=== PATIENT | female | born 1945 | race Caucasian/White ===

== ENCOUNTER 2020-05-02 14:10 | Emergency (ER) | payer MEDICARE, OTHER ==
[~2020-05-02 14:10] MED LIST: BENTYL 10MG CAP10 MG PO; CEFUROXIME500 MG PO; FLAGYL500 MG PO; LEVOFLOXACIN750 MG PO; PYRIDIUM200 MG PO; ZOFRAN 4 MG TAB4 MG PO
[2020-05-02 18:04] LABS: HEMOGLOBIN 11.6 gm/dl (12.3-15.3); RED BLOOD COUNT 3.73 M/UL (4.00-5.10); WHITE BLOOD COUNT 7.2 K/UL (4.5-11.0)
[2020-05-02] MEDS ORDERED: INVANZ 1 GM VIAL1 GM IV (19:02)
== END 2020-05-02 19:27 | disposition home or self-care (01) ==
LOC: ER1 14:10
PROVIDERS: Physician Assistant Medical
DX: N39.0 Urinary tract infection, site not specified (principal); B96.89 Other specified bacterial agents as the cause of diseases classified elsewhere; Z16.39 Resistance to other specified antimicrobial drug; Z88.0 Allergy status to penicillin; Z88.2 Allergy status to sulfonamides; Z88.8 Allergy status to other drugs, medicaments and biological substances
CPT/HCPCS: 80053; 81001; 85025; 87077; 87086; 87186; 96374; 99283; J1335

== ENCOUNTER → 2020-05-03 | Outpatient (CLI) | payer MEDICARE, OTHER ==
[~2020-05-03] MED LIST changes: +INVANZ 1 GM VIAL1 GM IV
== END ==
LOC: EROP 16:47
DX: N39.0 Urinary tract infection, site not specified (principal); Z16.20 Resistance to unspecified antibiotic
CPT/HCPCS: 96365; J1335

== ENCOUNTER → 2020-05-04 | Outpatient (CLI) | payer MEDICARE, OTHER | LOC: EROP 16:37 | DX: N39.0 Urinary tract infection, site not specified (principal) | CPT/HCPCS: 96365; J1335 ==

== ENCOUNTER → 2020-05-05 | Outpatient (CLI) | payer MEDICARE, OTHER | LOC: EDSTATUS 07:14 → EROP 16:14 | DX: N39.0 Urinary tract infection, site not specified (principal); Z16.20 Resistance to unspecified antibiotic | CPT/HCPCS: 96365; J1335 ==

== ENCOUNTER → 2020-05-06 | Outpatient (CLI) | payer MEDICARE, OTHER ==
[~2020-05-06] VITALS: Ht 165.1 cm; Wt 65.8 kg
== END ==
LOC: OPSV 10:57
DX: N39.0 Urinary tract infection, site not specified (principal)
CPT/HCPCS: 96365; J1335

== ENCOUNTER → 2020-05-07 | Outpatient (CLI) | payer MEDICARE, OTHER ==
[~2020-05-07] VITALS: Ht 165.1 cm; Wt 65.8 kg
== END ==
LOC: OPSV 10:54
DX: N39.0 Urinary tract infection, site not specified (principal)
CPT/HCPCS: 96365; J1335

== ENCOUNTER → 2020-05-08 | Outpatient (CLI) | payer MEDICARE, OTHER ==
[~2020-05-08] VITALS: Ht 165.1 cm; Wt 65.8 kg
== END ==
LOC: OPSV 10:15
DX: N39.0 Urinary tract infection, site not specified (principal)
CPT/HCPCS: 96365; J1335

== ENCOUNTER → 2020-07-17 | Outpatient (CLI) | payer MEDICARE, OTHER | LOC: RAD 11:17 | DX: M54.5 Low back pain (principal); M51.36 Other intervertebral disc degeneration, lumbar region | CPT/HCPCS: 72110 ==

== ENCOUNTER → 2020-08-13 | Outpatient (CLI) | payer MEDICARE, OTHER | LOC: LAB 11:09 | PROVIDERS: Internal Medicine Nephrology | DX: N18.30 Chronic kidney disease, stage 3 unspecified (principal) | CPT/HCPCS: 36415; 80053; 82570; 84156 ==

== ENCOUNTER 2021-05-10 12:12 | Emergency (ER) | payer MEDICARE, OTHER ==
[2021-05-10 13:38] LABS: HEMOGLOBIN 12.8 gm/dl (12.3-15.3); RED BLOOD COUNT 4.22 M/UL (4.00-5.10); WHITE BLOOD COUNT 7.6 K/UL (4.5-11.0)
== END 2021-05-10 18:53 | disposition home or self-care (01) ==
LOC: ER1 12:12
PROVIDERS: Physician Assistant Medical
DX: R00.2 Palpitations (principal); F41.9 Anxiety disorder, unspecified; E07.9 Disorder of thyroid, unspecified; E78.5 Hyperlipidemia, unspecified; I12.9 Hypertensive chronic kidney disease with stage 1 through stage 4 chronic kidney disease, or unspecified chronic kidney disease; N18.9 Chronic kidney disease, unspecified; Z88.0 Allergy status to penicillin; Z90.710 Acquired absence of both cervix and uterus; Z20.822 Contact with and (suspected) exposure to COVID-19
CPT/HCPCS: 71045; 80053; 81001; 82550; 82553; 83735; 83874; 84439; 84443; 84484; 85025; 85379; 85610; 99285; Q9967; U0002

== ENCOUNTER → 2021-07-03 | Outpatient (CLI) | payer MEDICARE, OTHER ==
[~2021-07-03] VITALS: Ht 165.1 cm; Wt 67.1 kg
== END ==
LOC: EDBD 06-23 08:00 → HEART 5 06-23 08:00 → EDBD 17:57 → EROP 17:57 → HEART 5 07-24 08:00
DX: Z16.12 Extended spectrum beta lactamase (ESBL) resistance (principal)
CPT/HCPCS: 96365; J0692

== ENCOUNTER → 2021-07-04 | Outpatient (CLI) | payer MEDICARE, OTHER ==
[~2021-07-04] VITALS: Ht 165.1 cm; Wt 67.1 kg
== END ==
LOC: EDBD 07:54 → OPSV 07:54
DX: Z16.12 Extended spectrum beta lactamase (ESBL) resistance (principal)
CPT/HCPCS: 96365; J0692

== ENCOUNTER → 2021-07-04 | Outpatient (CLI) | payer MEDICARE, OTHER | LOC: EDBD 18:21 → OPSV 18:21 | DX: Z16.12 Extended spectrum beta lactamase (ESBL) resistance (principal) | CPT/HCPCS: 96365; J0692 ==

== ENCOUNTER → 2021-07-05 | Outpatient (CLI) | payer MEDICARE, OTHER | LOC: OPSV 06:33 → EDBD 06:33 → OPSV 07:00 | DX: Z16.12 Extended spectrum beta lactamase (ESBL) resistance (principal) | CPT/HCPCS: 96365 ==

== ENCOUNTER → 2021-07-05 | Outpatient (CLI) | payer MEDICARE, OTHER ==
[~2021-07-05] VITALS: Ht 165.1 cm; Wt 67.1 kg
== END ==
LOC: EROP 18:10 → EDBD 18:10 → OPSV 19:00
DX: Z16.12 Extended spectrum beta lactamase (ESBL) resistance (principal); Z88.0 Allergy status to penicillin; Z88.2 Allergy status to sulfonamides
CPT/HCPCS: J0692

== ENCOUNTER → 2021-07-06 | Outpatient (CLI) | payer MEDICARE, OTHER ==
[~2021-07-06] VITALS: Ht 165.1 cm; Wt 67.1 kg
== END ==
LOC: EROP 18:06 → EDBD 18:06 → EROP 19:00 → OPSV 19:00
DX: Z16.12 Extended spectrum beta lactamase (ESBL) resistance (principal)
CPT/HCPCS: J0692

== ENCOUNTER → 2021-07-06 | Outpatient (CLI) | payer MEDICARE, OTHER ==
[~2021-07-06] VITALS: Ht 165.1 cm; Wt 67.1 kg
== END ==
LOC: OPSV 06:27 → EDBD 06:27 → EROP 06:27 → OPSV 07:00
DX: Z16.12 Extended spectrum beta lactamase (ESBL) resistance (principal)
CPT/HCPCS: 96365; J0692

== ENCOUNTER → 2021-07-07 | Outpatient (CLI) | payer MEDICARE, OTHER ==
[~2021-07-07] VITALS: Ht 165.1 cm; Wt 67.1 kg
== END ==
LOC: EDBD 07:00 → OPSV 07:00 → EROP 18:12
DX: Z16.12 Extended spectrum beta lactamase (ESBL) resistance (principal); Z88.0 Allergy status to penicillin
CPT/HCPCS: 96365; J0692

== ENCOUNTER → 2021-07-07 | Outpatient (CLI) | payer MEDICARE, OTHER | LOC: OPSV 06:53 | DX: Z16.12 Extended spectrum beta lactamase (ESBL) resistance (principal) | CPT/HCPCS: 96365; J0692 ==

== ENCOUNTER → 2021-07-08 | Outpatient (CLI) | payer MEDICARE, OTHER ==
[~2021-07-08] VITALS: Ht 165.1 cm; Wt 67.1 kg
== END ==
LOC: EDBD 07:00 → OPSV 07:00
DX: Z16.12 Extended spectrum beta lactamase (ESBL) resistance (principal); N39.0 Urinary tract infection, site not specified
CPT/HCPCS: 96365; J0692

== ENCOUNTER → 2021-07-08 | Outpatient (CLI) | payer MEDICARE, OTHER | LOC: OPSV 06:32 → EDBD 19:00 | DX: Z16.12 Extended spectrum beta lactamase (ESBL) resistance (principal) | CPT/HCPCS: 96365; J0692 ==

== ENCOUNTER → 2021-07-09 | Outpatient (CLI) | payer MEDICARE, OTHER ==
[~2021-07-09] VITALS: Ht 165.1 cm; Wt 67.1 kg
== END ==
LOC: OPSV 06:34 → EDBD 07:00 → OPSV 07:00
DX: Z16.12 Extended spectrum beta lactamase (ESBL) resistance (principal)
CPT/HCPCS: 96365; J0692

== ENCOUNTER → 2021-07-09 | Outpatient (CLI) | payer MEDICARE, OTHER ==
[~2021-07-09] VITALS: Ht 165.1 cm; Wt 67.1 kg
== END ==
LOC: OPSV 17:48 → EDBD 19:00 → OPSV 19:00
DX: Z16.12 Extended spectrum beta lactamase (ESBL) resistance (principal)
CPT/HCPCS: 96365; J0692

== ENCOUNTER → 2021-07-09 | Outpatient (CLI) | payer MEDICARE, OTHER | LOC: KOH-I 10:58 → EDBD 11:15 → KOH-I 11:15 | DX: R55 Syncope and collapse (principal); I65.23 Occlusion and stenosis of bilateral carotid arteries | CPT/HCPCS: 93880 ==

== ENCOUNTER → 2021-07-10 | Outpatient (CLI) | payer MEDICARE, OTHER | LOC: OPSV 06:27 → EDBD 07:00 → OPSV 07:00 | DX: Z16.12 Extended spectrum beta lactamase (ESBL) resistance (principal) | CPT/HCPCS: 96365; J0692 ==

== ENCOUNTER → 2021-07-24 | Outpatient (CLI) | payer MEDICARE, OTHER | LOC: HEART 5 07:45 | DX: I25.10 Atherosclerotic heart disease of native coronary artery without angina pectoris (principal); R01.1 Cardiac murmur, unspecified; R00.2 Palpitations; I08.1 Rheumatic disorders of both mitral and tricuspid valves; I27.20 Pulmonary hypertension, unspecified | CPT/HCPCS: 93306 ==